=== PATIENT | female | born 1930 | race Caucasian/White ===

== ENCOUNTER → 2016-11-28 | Outpatient (CLI) | payer MEDICARE, OTHER ==
--- NOTE | 2016-11-28 17:00 | Diagnostic Imaging Report ---
INDICATION: Shortness of breath. EXAMINATION: PA and lateral chest. COMPARISON: 02/28/2006. 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 There are no consolidating alveolar infiltrates. There are no effusions or pneumothoraces. IMPRESSION: Scarring in the lungs appears stable since 02/29/2016. Dictated by: Dictated on workstation # [id number]
== END ==
LOC: RAD 14:44
DX: R06.02 Shortness of breath (principal)
CPT/HCPCS: 71020

== ENCOUNTER 2019-08-03 14:04 | Outpatient (RCR) | payer MEDICARE, OTHER ==
--- NOTE | 2019-07-27 12:00 | NUR ---
Pt scheduled for upcoming pulmonary rehab evaluation; looked up file to see if current PFT in records (for eval) and to get mailing address to send paperwork.
--- NOTE | 2019-08-03 16:04 | NUR ---
WHEN CALLING INSURANCE TO CHECK COVERAGE FOR OUT-PATIENT PULMONARY REHAB; INSURANCE REP STATED THAT WE DID NOT HAVE MATCHING FOR PT. PT GAVE I.D. TO HOSPITAL WITH ..31 LISTED ON IT; SHE STATES HER CERTIFICATE HAS 11.16.30; SHE STATES THAT HER MOTHER TOLD HER SHE WAS BORN ON , BUT PHYSICIAN LISTED DATE OF CERTIFICATE. PT WOULD LIKE TO MATCH CERTIFICATE AND INSURANCE. SPOKE WITH SCHEDULING AND THEIR REMELT PAN TANK OPERATOR; THEY STATED TO HAVE PT BRING OTHER FORM OF I.D. ( CERTIFICATE) IN TO SHOW PROOF, IN ORDER TO CHANGE. I CALLED PT AND LET THEM KNOW, PT STATED SHE WOULD LOOK FOR CERTIFICATE TO BRING INTO HOSPITAL TO GET SCANNED.
== END 2019-11-01 | disposition home or self-care (01) ==
LOC: PULM 14:04
PROVIDERS: ATTEND Internal Medicine Critical Care Medicine
DX: J84.9 Interstitial pulmonary disease, unspecified (principal)
CPT/HCPCS: 99211